=== PATIENT | male | born 1975 | race Caucasian/White ===

== ENCOUNTER 2018-11-23 18:20 | Observation (INO) ==
[2018-11-23] MEDS ORDERED: Ondansetron 4 MG/2 ML VIAL IVP ONE (19:52)
[2018-11-23] MEDS ORDERED: Ketorolac 15 MG/ML VIAL IVP ONE (19:52)
[2018-11-23 20:08] LABS: Basophils # 0.1 K/mcL (0.0-0.2); Basophils % 0.9 %; Eosinophils # 0.4 K/mcL (0.0-0.6); Eosinophils % 4.3 %; Hematocrit 44.1 % (37.5-50.1); Hemoglobin 14.7 g/dL (12.9-16.9); Immature Granulocytes % 0.3 % (0-4); Mean Corpuscular HGB Conc 33.3 g/dL (31.6-35.5); Mean Corpuscular Hemoglobin 30.1 pg (28.0-33.3); Mean Corpuscular Volume 90.2 fL (83.0-100.0); Mean Platelet Volume 9.6 fL (9.4-12.4); Monocytes # 0.9 K/mcL (0.0-1.3); Monocytes % 9.2 %; Neutrophils # 4.1 K/mcL (1.6-8.9); Platelet Count 302 K/mcL (140-400); Red Blood Count 4.89 M/mcL (4.19-5.50); Red Cell Distribution Width 13.2 % (11.5-14.5); Segmented Neutrophils % 43.3 %; White Blood Count 9.6 K/mcL (4.3-11.1)
[2018-11-23 20:09] LABS: BUN/Creatinine Ratio 15 (6-26); Blood Urea Nitrogen 15 mg/dL (6-20); Calcium 9.1 mg/dL (8.6-10.3); Carbon Dioxide 30 mEq/L (23-29); Chloride 104 mEq/L (98-107); Glucose 117 mg/dL (70-105); Osmolality,Calculated 292 (280-300); Potassium 3.3 mEq/L (3.5-5.1); Sodium 140 mEq/L (136-145); eGFR For African Americans > 60 (> 60); eGFR For Non-African Americans > 60 (> 60)
[2018-11-23 20:22] LABS: Bilirubin,Urine Negative (Negative); Blood,Urine Negative (Negative); Clarity,Urine Clear (Clear); Color,Urine Yellow (Yellow); Glucose,Urine (UA) Normal (Normal); Ketones,Urine Negative (Negative); Leukocyte Esterase,Urine Negative (Negative); Nitrite,Urine Negative (Negative); Protein,Urine Trace mg/dL (Neg-Trace); Specific Gravity,Urine >= 1.030 (1.010-1.025); Urobilinogen,Urine Normal (Normal)
[2018-11-23 21:02] LABS: Troponin I < 0.03 ng/mL (< 0.04)
--- NOTE | 2018-11-23 21:47 | Emergency Department Note ---
Disposition Clinical Impression: Symptomatic bradycardia, Left flank pain Disposition: Admitted As Inpatient Condition: Good Time of Disposition: 21:48 General Adult HPI - General Chief complaint: ED Abdominal Pain Stated complaint: Left Knee, ABD pain, blood in urine Time Seen by Provider: 11/23/18 18:46 Source: patient Mode of arrival: ambulatory Limitations: no limitations Nursing Notes Reviewed: Yes Vital Signs Reviewed: Yes - History of Present Illness HPI Narrative: 43-year-old male with significant past medical history of hypertension and previous kidney stones presenting to the emergency department with chief complaint of left flank pain, left knee pain. Patient states that starting yesterday he is had left flank pain radiating around into the anterior abdomen. He was concerned that this could be due to a kidney stone. Patient is also concerned because apparently father was recently diagnosed with bladder cancer and he is concerned that he could have that as well. Patient discloses some nausea but denies any vomiting or changes in his stool. Denies any fevers, chest pain or shortness of breath. Patient also says he has chronic left knee pain. Denies any recent falls or trauma. Pain Scale: 7 - Related Data Home Medications Medication Instructions Recorded Confirmed Omeprazole [PriLOSEC] 40 mg PO DAILY 03/28/17 11/23/18 Citalopram Hydrobromide 20 mg PO DAILY 04/01/18 11/23/18 [Citalopram HBr] Diclofenac Sodium [Voltaren] 1 applic TP QID PRN 04/01/18 11/23/18 Ibuprofen [Motrin] 800 mg PO Q8HR PRN 04/01/18 11/23/18 amLODIPine [Norvasc] 5 mg PO DAILY 04/01/18 11/23/18 Allergies Allergy/AdvReac Type Severity Reaction Status Date / Time hydrochlorothiazide Allergy Rash Verified 11/23/18 18:27 Penicillins [PCN] Allergy Rash Verified 11/23/18 18:27 All systems ED: reviewed and negative except as stated. Constitutional: Denies: fever Eyes: Reports: as per HPI ENT ED: Reports: as per HPI Cardiovascular: Denies: chest pain Respiratory: Denies: dyspnea Gastrointestinal: Reports: abdominal pain, nausea Genitourinary: Reports: as per HPI Musculoskeletal: Reports: as per HPI Integumentary: Reports: as per HPI Neurological: Reports: as per HPI Psychiatric: Reports: as per HPI Endocrine: Reports: as per HPI Hematological/Lymphatic: Reports: as per HPI Allergic/Immunologic: Reports: as per HPI Past Medical History - Past Medical History Attestation: Yes The following information was validated with the patient. Medical history: Reports: GERD, hypertension, kidney stones, other Surgical history: Reports: vasectomy, other Psychiatric history: Reports: anxiety, depression - Social History Smoking Status: Never smoker Smokeless Tobacco Status: Yes (chewing tobacco) Alcohol use: Reports: rarely Drug use: Reports: none, other Physical Exam - General Limitations: no limitations General appearance: alert, in no apparent distress - Head Head exam: atraumatic, normocephalic, normal inspection - Eye Eye exam: Absent: scleral icterus - ENT ENT exam: mucous membranes moist - Neck Neck exam: Present: full ROM - Chest Chest inspection: Present: symmetric chest wall rise - Respiratory Respiratory exam: Present: normal lung sounds bilaterally. Absent: respiratory distress, wheezes - Cardiovascular Cardiovascular exam: Present: normal rhythm, bradycardia, normal heart sounds - Abdominal Exam Abdominal exam: Present: soft, tenderness (Left flank). Absent: distention, guarding, rebound, rigidity - Extremities Exam Extremities exam: Present: full ROM - Neurological Exam Neurological exam: Present: alert, oriented X3 - Psychiatric Psychiatric exam: Present: normal affect - Skin Skin exam: Present: warm Course Course Narrative: 43-year-old male presenting with left flank pain. In the room he is alert and oriented 3. Hemodynamically stable. Physical exam is significant for left flank pain. Concern for intra-abdominal etiology most likely kidney stone. At this time will obtain basic laboratory analysis, urinalysis and CT of abdomen and pelvis. Disposition pending. Patient agrees with this plan. - Reevaluation(s) Reevaluation #1: Patient laboratory analysis and urine analysis within normal limits. CT abdomen and pelvis does not show any acute abnormality. While patient was being evaluated patient became bradycardic in the 30s. An EKG was completed that showed sinus bradycardia at 39 beats per minute. Patient states that he has been having lightheaded spells at home and has passed out multiple times. This is corroborated by the at bedside. At this time due to patient's symptomatic bradycardia we will plan to admit him for further evaluation. Troponin and chest x-ray was added to patient's workup. Troponin within normal limits. I spoke with the hospitalist on-call who agrees to accept the patient at this time. Patient remains alert and oriented 3 and hemodynamically stable at time of admission. Vital Signs Temperature 98.0 F 11/23/18 18:25 Pulse Rate 56 11/23/18 18:25 Respiratory Rate 18 11/23/18 18:25 Blood Pressure 131/79 11/23/18 18:25 O2 Sat by Pulse Oximetry 98 11/23/18 18:25 Temperature 98.0 F 11/23/18 18:25 Pulse Rate 41 11/23/18 20:45 Respiratory Rate 17 11/23/18 20:45 Blood Pressure 132/89 11/23/18 20:45 O2 Sat by Pulse Oximetry 100 11/23/18 20:45 Oxygen Delivery Oxygen Delivery Room Air Medical Decision Making - Lab Data Result diagrams: 11/24/18 05:43 11/24/18 05:43 Lab Results 11/23/18 11/23/18 11/23/18 Range/Units 19:09 19:29 19:29 WBC 9.6 (4.3-11.1) K/mcL RBC 4.89 (4.19-5.50) M/mcL Hgb 14.7 (12.9-16.9) g/dL Hct 44.1 (37.5-50.1) % MCV 90.2 (83.0-100.0) fL MCH 30.1 (28.0-33.3) pg MCHC 33.3 (31.6-35.5) g/dL RDW 13.2 (11.5-14.5) % Plt Count 302 (140-400) K/mcL MPV 9.6 (9.4-12.4) fL Immature Gran % 0.3 (0-4) % Seg Neutrophils % 43.3 % Lymphocytes % 42.0 % Monocytes % 9.2 % Eosinophils % 4.3 % Basophils % 0.9 % Neutrophils # 4.1 (1.6-8.9) K/mcL Lymphocytes # 4.0 (0.6-4.6) K/mcL Monocytes # 0.9 (0.0-1.3) K/mcL Eosinophils # 0.4 (0.0-0.6) K/mcL Basophils # 0.1 (0.0-0.2) K/mcL Sodium 140 (136-145) mEq/L Potassium 3.3 L (3.5-5.1) mEq/L Chloride 104 (98-107) mEq/L Carbon Dioxide 30 H (23-29) mEq/L BUN 15 (6-20) mg/dL Creatinine 1.00 (0.70-1.30) mg/dL Est GFR ( Amer) > 60 (> 60) Est GFR (Non-Af Amer) > 60 (> 60) BUN/Creatinine Ratio 15 (6-26) Glucose 117 H (70-105) mg/dL Calculated Osmolality 292 (280-300) Calcium 9.1 (8.6-10.3) mg/dL Troponin I < 0.03 (< 0.04) ng/mL Urine Color Yellow (Yellow) Urine Clarity Clear (Clear) Urine pH 6.0 (5.0-8.0) pH Units Ur Specific [place] >= 1.030 H (1.010-1.025) Urine Protein Trace (Neg-Trace) mg/dL Urine Glucose (UA) Normal (Normal) mg/dL Urine Ketones Negative (Negative) mg/dL Urine Blood Negative (Negative) Urine Nitrite Negative (Negative) Urine Bilirubin Negative (Negative) Urine Urobilinogen Normal (Normal) mg/dL Ur Leukocyte Esterase Negative (Negative) Ur Culture Indicated? NO (NO) - EKG Data EKG #1 EKG attestation: Yes I reviewed and interpreted this EKG. EKG results narrative: Sinus bradycardia. 39 beats for minute. No sign of acute ST segment elevation or ischemia. Attestation Statement - Attestation Attestation: I examined this patient and my medical decision-making was reviewed with the Resident Physician. I agree with the documented findings, disposition and treatment plan as described except to the extent set forth below. Patient mainly complaining of left-sided lower abdominal pain. The patient states he is being blood in the other day. The patient states that he is also had some lightheadedness. The patient was found to have bradycardia here in the emergency room as well. The patient possibly could have symptomatically bradycardia. The patient is on calcium channel soniya. Patient however is on no other beta soniya. Given that the patient has significant bradycardia and symptoms from this the patient will be admitted for further evaluation. The patient did not have any evidence of emergent abdominal issues. No evidence of kidney stones. No evidence of UTI or infections. Patient's this point in time will be admitted in stable condition. He did have an EKG, do agree with the resident's interpretation of this EKG.
[2018-11-24] MEDS ORDERED: Naloxone 0.4 MG/ML INJ IVP PRN (05:19)
--- NOTE | 2018-11-24 05:24 | Internal Med History&Physical ---
Date of Encounter: 11/24/18 Time of Encounter: 04:09 Internal Medicine - H&P: HPI Chief complaint: Symptomatic bradycardia History of present illness: Mr. Reeves is a 43 year old male Patient presents the emergency department with left knee pain as well as left flank pain. He has a history of kidney stones, and has frequent injections in his left knee after having multiple injuries to it over the years. He also states that he has been having multiple falls at home and at work. 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 Emergency department vital signs were notable for heart rate of 56, documented as low as 40 CBC unremarkable BMP notable for a potassium of 3.3 Initial troponin undetectable Urinalysis notable only for an elevated specific gravity, otherwise no abnormalities. Knee x-ray showed no acute osseous abnormality Abdomen and pelvis CT showed a few nonobstructing right renal calculi but no ureteric calculi. There is some nonspecific free fluid in the pelvis. No bowel obstruction Chest x-ray was stable with no acute process identified. EKG: Sinus bradycardia, rate 39, QTC [address] changes. In the emergency department patient received a 50 mg dose of Toradol, 4 mg of Zofran. He was admitted to the hospital for further management. Upon my evaluation, patient is resting comfortably in hospital bed in no acute distress. He denies chest pain, abdominal pain, nausea, vomiting, diarrhea cons tipation. He has been having his symptomatic bradycardia for many years. His PCP has worked him up in the past, but he denies ever having an echocardiogram or stress test performed. He is never seen a timber management assistant either. He is a full code. Past Med Surg Social Fam HX - Past Medical History Medical history: GERD, hypertension, kidney stones, other Additional medical history: opiod abuse,low back pain, home o2 2 lpm, hep c. anxiety with depression. lumbar HNP L5/S1. lumbar radiculitis. left leg nu mbness and pain. umbilical hernia Psychiatric history: anxiety, depression - Past Surgical History Surgical History: herniorrhaphy Additional surgical history: hydrocele surgery,vascetomy,finger amputation,liver bx. lithotripsy - Social History Smoking Status: Never smoker Smokeless Tobacco Status: Yes Alcohol use: rarely Drug use: none, other - Family History Mother Age: 65 Living Status: Still Living Hx Family Cardiac Disorders: Yes (heart disease) Hx Family Cancer: Yes (cervical cancer) Hx Family Endocrine Disorder: Yes (dm) Father Age: 68 Living Status: Still Living Hx Family Cardiac Disorders: Yes (heart disease) Hx Family Cancer: Yes (bladder cancer) Hx Family Endocrine Disorder: Yes (DM) Internal Medicine - H&P: Meds Omeprazole [PriLOSEC] 40 mg PO DAILY 03/28/17 [History] Citalopram Hydrobromide [Citalopram HBr] 20 mg PO DAILY 04/01/18 [History] Diclofenac Sodium [Voltaren] 1 applic TP QID PRN 04/01/18 [History] Ibuprofen [Motrin] 800 mg PO Q8HR PRN 04/01/18 [History] amLODIPine [Norvasc] 5 mg PO DAILY 04/01/18 [History] Allergy/AdvReac Type Severity Reaction Status Date / Time hydrochlorothiazide Allergy Rash Verified 11/23/18 18:27 Penicillins [PCN] Allergy Rash Verified 11/23/18 18:27 All Systems PM: A 10-system review of systems was performed and is negative for pertinent findings except as documented above in the HPI. - Constitutional Vitals: Temp Pulse Resp BP Pulse Ox 97.5 F L 46 16 104/63 97 11/24/18 04:25 11/24/18 04:25 11/24/18 04:25 11/24/18 04:25 11/24/18 04:25 General appearance: Present: cooperative, A&O X 3, pleasant, no acute distress, answers questions appropriately Exam: - - Head Head exam: Present: normal inspection - Eye Eye exam: Present: EOMI, normal appearance - Neck Neck exam general surgery: Present: full ROM - Respiratory Respiratory exam: Present: CTAB. Absent: rales, respiratory distress, rhonchi, wheezes - Cardiovascular Cardiovascular exam: Present: bradycardia. Absent: diastolic murmur, systolic murmur - GI/Abdominal GI/Abdominal exam: Present: normal bowel sounds, soft. Absent: tenderness - Extremities Exam Extremities exam: Present: warm, radial pulses palpable and symmetrical. Absent: calf tenderness, pedal edema, tenderness - Neurological Exam Neurological exam: Present: no focal deficits, strengths equal and symetr throughout. Absent: motor sensory deficit, facial droop, speech deficit - Skin Skin exam: Present: dry, normal color, warm Internal Med - H&P Results - Labs CBC & Chem 7: 11/23/18 19:29 11/23/18 19:29 Labs: Short CBC 11/23/18 Range/Units 19:29 WBC 9.6 (4.3-11.1) K/mcL Hgb 14.7 (12.9-16.9) g/dL Hct 44.1 (37.5-50.1) % Plt Count 302 (140-400) K/mcL Neutrophils # 4.1 (1.6-8.9) K/mcL BMP 11/23/18 19:29 Sodium 140 Potassium 3.3 L Chloride 104 Carbon Dioxide 30 H BUN 15 Creatinine 1.00 Glucose 117 H Calcium 9.1 Cardiac Enzymes 11/23/18 Range/Units 19:29 Troponin I < 0.03 (< 0.04) ng/mL Urine 11/23/18 Range/Units 19:09 Urine Color Yellow (Yellow) Urine Clarity Clear (Clear) Urine pH 6.0 (5.0-8.0) pH Units Ur Specific [place] >= 1.030 H (1.010-1.025) Urine Protein Trace (Neg-Trace) mg/dL Urine Glucose (UA) Normal (Normal) mg/dL - Impressions ITS Impressions Knee X-Ray 11/23/18 19:46 IMPRESSION: No acute osseous abnormality. D/ / Rob Ji / Rob Ji Interpreting Provider: Rob Ji Abdomen/Pelvis CT 11/23/18 20:20 IMPRESSION: 1. A few punctate nonobstructing right renal calculi. No ureteric calculi. 2. Small amount of free fluid in the pelvis which is nonspecific. This could be due to an occult infectious or inflammatory process. 3. No bowel obstruction. D/ / Mao Pastor MD / Mao Pastor MD Interpreting Provider: Mao Pastor MD Chest X-Ray 11/23/18 21:44 IMPRESSION: 1. Stable cardiomegaly with no acute cardiopulmonary process identified. D/ / Desmond Simon MD / Desmond Simon MD Interpreting Provider: Desmond Simon MD - Assessment and Plan (1) Symptomatic bradycardia Current Visit: Yes Status: Acute Assessment and plan: Patient has had multiple falls at work and at home, possibly related to his low heart rate. He has been told these had a low heart rate in the past but has not had it worked up before. Records, and he has seen Dr. Flores and had a Holter monitor placed. The Holter monitor results indicated an average heart rate of 68 with a minimum heart rate of 38. Cardiac telemetry Echocardiogram in the morning Cardiology consult (2) Weakness Current Visit: Yes Status: Acute Assessment and plan: Possibly related to bradycardia. 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 He has passed out at work while climbing hills and lifting heavy objects. Cardiology consult Echocardiogram in the morning Continue to monitor (3) Left knee pain Current Visit: Yes Status: Acute Assessment and plan: Chronic, patient usually gets steroid injections every 6 months. Follow-up outpatient Pain management as needed Qualifiers: Chronicity: chronic Qualified Code(s): M25.562 - Pain in left knee; G89.29 - Other chronic pain (4) Hypokalemia Current Visit: Yes Status: Acute Assessment and plan: Mildly low potassium of 3.3. Replete as needed Check magnesium (5) Left flank pain Current Visit: Yes Status: Acute Assessment and plan: Patient did not have flank pain on my exam, no tenderness with palpation. No kidney stones seen on CT. Continue to monitor (6) DVT prophylaxis Current Visit: Yes Status: Acute Assessment and plan: SCDs - Time Spent With Patient Total time spent is greater than 50% in coordination of care (as documented) at patient's floor/unit and/or counseling patient: Greater than 35 minutes
[2018-11-24] MEDS ORDERED: Potassium Chloride Elixir 20 MEQ/15 ML UDC PO ONE (05:48)
[2018-11-24] MEDS ORDERED: Potassium Chloride 40 MEQ, Lidocaine 1% 2 ML in D5% in Water 500 ML IVPB ONE (06:09)
[2018-11-24] MEDS ORDERED: Potassium Chloride 40 MEQ, Lidocaine 1% 2 ML in 0.9 % Sodium Chloride 500 ML IVPB ONE (06:45)
[2018-11-24 06:52] LABS: Hematocrit 42.7 % (37.5-50.1); Hemoglobin 13.9 g/dL (12.9-16.9); Mean Corpuscular HGB Conc 32.6 g/dL (31.6-35.5); Mean Corpuscular Hemoglobin 29.9 pg (28.0-33.3); Mean Corpuscular Volume 91.8 fL (83.0-100.0); Mean Platelet Volume 10.1 fL (9.4-12.4); Platelet Count 256 K/mcL (140-400); Red Blood Count 4.65 M/mcL (4.19-5.50); Red Cell Distribution Width 13.3 % (11.5-14.5); White Blood Count 8.6 K/mcL (4.3-11.1)
[2018-11-24 07:13] LABS: BUN/Creatinine Ratio 14 (6-26); Blood Urea Nitrogen 14 mg/dL (6-20); Calcium 8.7 mg/dL (8.6-10.3); Carbon Dioxide 28 mEq/L (23-29); Chloride 105 mEq/L (98-107); Glucose 116 mg/dL (70-105); Osmolality,Calculated 291 (280-300); Potassium 3.3 mEq/L (3.5-5.1); Sodium 140 mEq/L (136-145); eGFR For African Americans > 60 (> 60); eGFR For Non-African Americans > 60 (> 60)
--- NOTE | 2018-11-24 09:47 | Cardiology Consult Note ---
Date of Encounter: 11/24/18 Time of Encounter: 09:45 Assessment and Plan (1) Symptomatic bradycardia Current Visit: Yes Status: Acute Patient reports he has been having bradycardia and frequent falls intermittently for past three years. Holter monitor in 12/2016 showed average HR 68 with low of 39 and high of 168. Previous to this visit, patient had never had echocardiogram or stress test. -Echocardiogram has been performed and we will await report. -It is concerning that patient has been having episodes of syncope with bradycardia. -Recommend patient remain on telemetry at this time. -Will order treadmill nuclear stress test to further clarify heart function today or tomorrow -Possibly refer to EP; Dr. Darius Faust will be attending tomorrow. -Potassium level x2 has been 3.3. -KCl is currently being administered by IV Discussion w patient/family: The assessment and plan as outlined above was discussed with the patient and/or family members who expressed understanding and agreement. All questions were answered. Thank you for involving us in the care of your patient. Please call with any questions. History of Present Illness Consult date: 11/24/18 Requesting physician: Eric Blandon Consult reason: Symptomatic bradycardia Chief complaint: Symptomatic bradycardia History of present illness: Mr. Reeves is a 43 year old male who presents with symptomatic bradycardia in a context of hypokalemia and PMH of hypertension. He came to ED for left knee pain and left flank pain with PMH of kidney stones and frequent knee injections for multiple injuries. He was found to have a low heart rate which was 40 bpm at lowest. Patient reports he has had bradycardia with frequent falls and lightheadedness for approximately three years. In December 2016, his PCP sent him for Holter monitor which showed average HR of 68, minimum of 39 and maximum of 168, 1 PVC, 8 PACs. No further testing or management was performed at this time. Patient reports he is constantly exhausted and could sleep all day long if knee and back did not hurt. He also endorses lightheadedness, frequent falls, exertional dyspnea, chest pain at rest and at exertion, intermittent blurry vision, depression, anxiety, and headache. In ED, BMP showed potassium of 3.3, negative troponin, unremarkable CBC. CXR was stable and showed no acute process. ECG showed sinus bradycardia with rate of 39 QTc 378 ms, no ST changes. He received an echocardiogram this morning, with report pending. He previously h ad never had an echocardiogram or a stress test. 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 Past Med Surg Social Fam HX - Past Medical History Medical history: GERD, hypertension, kidney stones, other Additional medical history: opiod abuse,low back pain, home o2 2 lpm, hep c. anxiety with depression. lumbar HNP L5/S1. lumbar radiculitis. left leg numbness and pain. umbilical hernia Psychiatric history: anxiety, depression - Past Surgical History Surgical History: herniorrhaphy Additional surgical history: hydrocele surgery,vascetomy,finger amputation,liver bx. lithotripsy - Social History Smoking Status: Never smoker Smokeless Tobacco Status: Yes Alcohol use: rarely Drug use: none, other - Family History Mother Age: 65 Living Status: Still Living Hx Family Cardiac Disorders: Yes (heart disease) Hx Family Cancer: Yes (cervical cancer) Hx Family Endocrine Disorder: Yes (dm) Father Age: 68 Living Status: Still Living Hx Family Cardiac Disorders: Yes (heart disease) Hx Family Cancer: Yes (bladder cancer) Hx Family Endocrine Disorder: Yes (DM) Medications and Allergies Omeprazole [PriLOSEC] 40 mg PO DAILY 03/28/17 [History] Citalopram Hydrobromide [Citalopram HBr] 20 mg PO DAILY 04/01/18 [History] Diclofenac Sodium [Voltaren] 1 applic TP QID PRN 04/01/18 [History] Ibuprofen [Motrin] 800 mg PO Q8HR PRN 04/01/18 [History] amLODIPine [Norvasc] 5 mg PO DAILY 04/01/18 [History] Allergy/AdvReac Type Severity Reaction Status Date / Time hydrochlorothiazide Allergy Rash Verified 11/23/18 18:27 Penicillins [PCN] Allergy Rash Verified 11/23/18 18:27 All Systems Review: The remainder of the systems were reviewed and are negative - Constitutional Constitutional: fatigue, frequent falls, headache(s), snoring - EENT Eyes: blurred vision - Cardiovascular Cardiovascular: chest pain at rest, chest pain with exertion, dyspnea on exertion, leg edema (left only), lightheadedness, orthopnea, slow heart rate, syncope, no dyspnea at rest, no radiating jaw, neck or arm pain - Respiratory Respiratory: dyspnea, no wheezing - Gastrointestinal Gastrointestinal: constipation, diarrhea, nausea, other (vomiting) - Genitourinary Genitourinary: no dysuria - Musculoskeletal Musculoskeletal: back pain - Integumentary Integumentary: no rash - Neurological Neurological: dizziness, numbness, syncope, tingling - Psychiatric Psychiatric: anxiety, depression - Hematological/Lymphatic Hematologic/Lymphatic: no easy bleeding, no easy bruising Physical Examination Vital Signs, Last 4 Hours Temp Pulse Resp BP Pulse Ox 11/24/18 07:17 97.7 F 39 16 108/66 97 Other: GENERAL: Alert, answers questions appropriately, somewhat anxious HENT: normocephalic, atraumatic. Moist mucosa EYES: anicteric, clear sclerae. Pupils equal and reactive to light bilaterally NECK: no carotid bruits heard. Supple CV: bradycardic. Regular rhythm. No murmurs, clicks, or gallops heard RESPIRATORY/CHEST: clear to auscultation bilaterally. No wheezes, rhonchi, or rales. Diffuse mild tenderness over chest. GI: soft, nontender, nondistended. Normal bowel sounds EXTREMITIES: peripheral pulses 2+/4 bilaterally, nonedematous, acyanotic SKIN: warm, dry Results 11/24/18 05:43 11/24/18 05:43 Lab Results 11/23/18 11/23/18 11/24/18 19:29 19:29 05:43 WBC 9.6 8.6 Hgb 14.7 13.9 Hct 44.1 42.7 Plt Count 302 256 Sodium 140 Potassium 3.3 L Chloride 104 Carbon Dioxide 30 H BUN 15 Creatinine 1.00 Glucose 117 H Calcium 9.1 Magnesium Troponin I < 0.03 11/24/18 11/24/18 05:43 05:43 WBC Hgb Hct Plt Count Sodium 140 Potassium 3.3 L Chloride 105 Carbon Dioxide 28 BUN 14 Creatinine 0.99 Glucose 116 H Calcium 8.7 Magnesium 2.2 Troponin I - EKG Interpretation EKG results cardiology: personally reviewed, sinus rhythm (bradycardic) Consult Discharge Plan - Plan Referrals: NONE,PCP [Primary Care Provider] -
[2018-11-24] MEDS ORDERED: Regadenoson 0.4 MG/5 ML SYRINGE IVP ONE ×2 (12:28→12:37)
[2018-11-24 12:38] LABS: Thyroid Stimulating Hormone 5.566 mcIU/mL (0.340-5.600)
--- NOTE | 2018-11-24 14:43 | Internal Med Progress Note ---
Hospitalist Progress Note - Encounter Date of Encounter: 11/24/18 Time of Encounter: 14:15 - Subjective Interval History: Mr. Reeves is a 43 year old male with known past medical history of hypertension and depression pt presented to ER with progressively worsening generalized weakness, lethargic, frequent falls and passing out spells. 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 His serial troponin came back as negative. He denied any chest pain/shortness of breath now. However he does complain about dyspnea on exertion. Still feeling lightheaded/dizzy and weak - Exam Vitals: Temp Pulse Resp BP Pulse Ox 97.8 F 44 16 125/76 97 11/24/18 11:37 11/24/18 11:37 11/24/18 11:37 11/24/18 11:37 11/24/18 11:37 Exam: Gen: Alert, awake, Oriented to time,place and person Chest: Diminished breath sounds B/L, No wheezing, No crackles, No rales Heart: S1S2+ bradycardia No murmurs Abd: Soft, NT, BS +, No organomegaly Ext: No edema, pulses are palpable, No calf tenderness Neuro : No acute focal neuro deficits noticed Skin: No rash. - Assessment and Plan (1) Symptomatic bradycardia Current Visit: Yes Status: Acute Assessment and Plan: cont on tele so far serial troponin x 3 negative Echo showed LVEF 55-60%, normal left ventricular diastolic function Cardiology on board.. Appreciate their recommendations Scheduled for stress test today to assess HR with stress may need pacemaker placement.. Will talk to card cont on tele for now avoid BB and rate control medications (2) Weakness Current Visit: Yes Status: Acute Assessment and Plan: Possibly related to bradycardia (3) Left knee pain Current Visit: Yes Status: Acute Assessment and Plan: Chronic, patient usually gets steroid injections every 6 months. Follow-up outpatient Pain management as needed (4) Hypokalemia Current Visit: Yes Status: Acute Assessment and Plan: Mildly low potassium of 3.3. Replete as needed Check magnesium and K+ in AM (5) DVT prophylaxis Current Visit: Yes Status: Acute Assessment and Plan: On heparin SQ - Time Spent with Patient Total time spent is greater than 50% in coordination of care (as documented) at patient's floor/unit and/or counseling patient: Internal Medicine: Result - Labs CBC & Chem 7: 11/24/18 05:43 11/24/18 05:43 Labs: Short CBC 11/23/18 11/24/18 Range/Units 19:29 05:43 WBC 9.6 8.6 (4.3-11.1) K/mcL Hgb 14.7 13.9 (12.9-16.9) g/dL Hct 44.1 42.7 (37.5-50.1) % Plt Count 302 256 (140-400) K/mcL Neutrophils # 4.1 (1.6-8.9) K/mcL BMP 11/23/18 11/24/18 19:29 05:43 Sodium 140 140 Potassium 3.3 L 3.3 L Chloride 104 105 Carbon Dioxide 30 H 28 BUN 15 14 Creatinine 1.00 0.99 Glucose 117 H 116 H Calcium 9.1 8.7 Cardiac Enzymes 11/23/18 Range/Units 19:29 Troponin I < 0.03 (< 0.04) ng/mL Urine 11/23/18 Range/Units 19:09 Urine Color Yellow (Yellow) Urine Clarity Clear (Clear) Urine pH 6.0 (5.0-8.0) pH Units Ur Specific [place] >= 1.030 H (1.010-1.025) Urine Protein Trace (Neg-Trace) mg/dL Urine Glucose (UA) Normal (Normal) mg/dL - Impressions Impressions Knee X-Ray 11/23/18 19:46 IMPRESSION: No acute osseous abnormality. D/ / Rob Ji / Rbo Ji Interpreting Provider: Rob Ji Abdomen/Pelvis CT 11/23/18 20:20 IMPRESSION: 1. A few punctate nonobstructing right renal calculi. No ureteric calculi. 2. Small amount of free fluid in the pelvis which is nonspecific. This could be due to an occult infectious or inflammatory process. 3. No bowel obstruction. D/ / Mao Pastor MD / Mao Pastor MD Interpreting Provider: Mao Pastor MD Chest X-Ray 11/23/18 21:44 IMPRESSION: 1. Stable cardiomegaly with no acute cardiopulmonary process identified. D/ / Desmond Simon MD / Desmond Simon MD Interpreting Provider: Desmond Simon MD Echocardiogram 11/24/18 08:23 Impressions: LVEF 55-60%. Normal LV chamber size, wall thickness and function. Normal left ventricular diastolic function. Normal right ventricular structure and function. Mild tricuspid regurgitation. No evidence of pulmonary hypertension. Left Ventricular Wall Motion: Rest Echo Findings All wall segments showed normal motion. Findings: Study Quality * Technically adequate exam. ECG Findings * Sinus bradycardia. Left Ventricle * LVEF 55-60%. * Normal LV chamber size, wall thickness and function. * Normal left ventricular diastolic function. Right Ventricle * Normal right ventricular structure and function. Left Atrium * Normal left atrial size. Right Atrium * Normal right atrial size. Interatrial Septum * No evidence of PFO by color Doppler. Aortic Valve * Trileaflet aortic valve. * No aortic regurgitation. * No aortic stenosis. * Normal aortic valve structure. Mitral Valve * Normal mitral valve structure. * No mitral regurgitation. * No mitral stenosis. Tricuspid Valve * Normal tricuspid valve structure. * No tricuspid stenosis. * No evidence of pulmonary hypertension. * Mild tricuspid regurgitation. Pulmonic Valve * Trace pulmonic regurgitation. Aorta * Normally sized aortic root. Pericardium * The pericardium appears normal. IVC * The IVC is not well evaluated. Pulmonary Artery * Normal visualized portions of the main pulmonary artery. Consult Discharge Plan - Plan Referrals: NONE,PCP [Primary Care Provider] - (3) Left knee pain Qualifiers: Chronicity: chronic Qualified Code(s): M25.562 - Pain in left knee; G89.29 - Other chronic pain
--- NOTE | 2018-11-24 15:53 | Electrocardiograph Report ---
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
[2018-11-24] MEDS: *HR* Heparin 5,000 UNIT/ML VIAL SQ SCH (16:57)
[2018-11-24] MEDS: Aspirin Enteric Coated 81 MG Tablet PO SCH (16:57)
[2018-11-25] MEDS: *HR* Heparin 5,000 UNIT/ML VIAL SQ SCH (05:22)
[2018-11-25 05:30] LABS: BUN/Creatinine Ratio 13 (6-26); Blood Urea Nitrogen 13 mg/dL (6-20); Calcium 8.5 mg/dL (8.6-10.3); Carbon Dioxide 26 mEq/L (23-29); Chloride 105 mEq/L (98-107); Glucose 128 mg/dL (70-105); Magnesium 2.1 mg/dL (1.6-2.6); Osmolality,Calculated 290 (280-300); Potassium 3.5 mEq/L (3.5-5.1); Sodium 139 mEq/L (136-145); eGFR For African Americans > 60 (> 60); eGFR For Non-African Americans > 60 (> 60)
[2018-11-25] MEDS: Aspirin Enteric Coated 81 MG Tablet PO SCH (08:07)
--- NOTE | 2018-11-25 08:57 | Cardiology Progress Note ---
Date of Encounter: 11/25/18 Time of Encounter: 09:56 Assessment and Plan (1) Symptomatic bradycardia Current Visit: Yes Status: Acute Patient reports he has been having bradycardia and frequent falls intermittently for past three years. Holter monitor in 12/2016 showed average HR 68 with low of 39 and high of 168. Previous to this visit, patient had never had echocardiogram or stress test. -Echocardiogram showed EF 55-60%, normal LV chamber size and wall thickness and function, normal LV diastolic function, normal RV structure and function, mild TR and no evidence of pulmonary HTN. -Recommend patient remain on telemetry at this time. -Nuclear exercise stress test showed low level exercise during test. It was negative for ischemia, perfusion study was negative for ischemia or signs of infarction. There was a small fixed apical inferior defect of mild intensity with normal wall motion which is likely an artifact. Max HR 117, max BP 160/96. Patient experienced dizziness during test. -Potassium level x2 had been 3.3. Today this has improved to 3.5. -Currently evaluating patient history and presentation; patient age is rather young to have sick sinus. -Recommendations pending regarding need for pacemaker; uncertain whether it would be useful for symptom managment. -We do not recommend cardiac catheterization at this time as TTE and echo were both unremarkable. Discussion w patient/family: The assessment and plan as outlined above was discussed with the patient and/or family members who expressed understanding and agreement. All questions were answered. Thank you for involving us in the care of your patient. Please call with any questions. Subjective Principal diagnosis: symptomatic bradycardia Interval history: Mike Reeves is a 43-year-old male who presented with symptomatic bradycardia with frequent falls and lightheadedness. Yesterday, he underwent nuclear exercise stress test with low level exercise. This was negative for ischemia. Perfusion study was negative for ischemia or infarct/ There was a small fixed apical inferior defect of mild intensity with normal wall motion present, which was suggestive of artifact. Maximum heart rate was 115, maximum blood-pressure was 160/96. Patient did experience dizziness during test and reached 2.1 METS. Today, patient reports he was told after stress test that he would probably need a pacemaker and possibly cardiac catheterization first to rule out presence of any coronary blockages. He is currently NPO and is agreeable to either of these or both. Objective Vital Signs, Last 4 Hours Temp Pulse Resp BP Pulse Ox 11/25/18 06:59 97.7 F 41 16 107/65 97 Other: GENERAL: alert, conversant, in no acute distress HENT: atraumatic, normocephalic. Moist mucosa EYES: anicteric, clear sclerae, pupils equal and reactive to light bilaterally NECK: normal carotid pulses bilaterally. Supple. CV: Bradycardic, regular rate. No murmurs, clicks, gallops. RESPIRATORY: clear to auscultation bilaterally. No wheezes, rhonchi, or rales. GI: soft, mild RUQ tenderness. Nondistended. Normal bowel sounds in all four quadrants EXTREMITIES: nonedematous, acyanotic. Warm and dry. Peripheral pulses 2+/4 bilaterally. Capillary refill <2 sec Results 11/24/18 05:43 11/25/18 04:40 Lab Results 11/24/18 11/25/18 05:43 04:40 Sodium 140 139 Potassium 3.3 L 3.5 Chloride 105 105 Carbon Dioxide 28 26 BUN 14 13 Creatinine 0.99 1.01 Glucose 116 H 128 H Calcium 8.7 8.5 L Magnesium 2.1 TSH 5.566 - Imaging and Cardiology Stress Test: report reviewed Echo: report reviewed Consult Discharge Plan - Plan Referrals: NONE,PCP [Primary Care Provider] -
[2018-11-25 11:27] VITALS: BP 122/70
--- NOTE | 2018-11-25 15:09 | Internal Med Progress Note ---
Hospitalist Progress Note - Encounter Date of Encounter: 11/25/18 Time of Encounter: 13:45 - Subjective Interval History: Patient was seen examined and bedside. She still complaining about feeling lethargic, lightheadedness and dizzy. He denied any chest pain. He does complain about dyspnea on exertion - Exam Vitals: Temp Pulse Resp BP Pulse Ox 97.7 F 41 16 122/70 98 11/25/18 11:11/25/18 11:11/25/18 11:11/25/18 11:11/25/18 11:26 Exam: Gen: Alert, awake, Oriented to time,place and person Chest: Diminished breath sounds B/L, No wheezing, No crackles, No rales Heart: S1S2+ bradycardia No murmurs Abd: Soft, NT, BS +, No organomegaly Ext: No edema, pulses are palpable, No calf tenderness Neuro : No acute focal neuro deficits noticed Skin: No rash. - Assessment and Plan (1) Symptomatic bradycardia Current Visit: Yes Status: Acute Assessment and Plan: cont on tele so far serial troponin x 3 negative Echo showed LVEF 55-60%, normal left ventricular diastolic function Cardiology on board.. Appreciate their recommendations his nuclear stress test came back is negative for ischemia/infarction He may need pacemaker placement.. Will talk to card cont on tele for now avoid BB and rate control medications (2) Weakness Current Visit: Yes Status: Acute Assessment and Plan: Possibly related to bradycardia (3) Left knee pain Current Visit: Yes Status: Acute Assessment and Plan: Chronic, patient usually gets steroid injections every 6 months. Follow-up outpatient Pain management as needed (4) Hypokalemia Current Visit: Yes Status: Acute Assessment and Plan: Resolved (5) DVT prophylaxis Current Visit: Yes Status: Acute Assessment and Plan: On heparin SQ - Time Spent with Patient Total time spent is greater than 50% in coordination of care (as documented) at patient's floor/unit and/or counseling patient: Internal Medicine: Result - Labs CBC & Chem 7: 11/24/18 05:43 11/25/18 04:40 Labs: BMP 11/25/18 04:40 Sodium 139 Potassium 3.5 Chloride 105 Carbon Dioxide 26 BUN 13 Creatinine 1.01 Glucose 128 H Calcium 8.5 L Consult Discharge Plan - Plan Referrals: NONE,PCP [Primary Care Provider] - (3) Left knee pain Qualifiers: Chronicity: chronic Qualified Code(s): M25.562 - Pain in left knee; G89.29 - Other chronic pain
--- NOTE | 2018-11-25 16:09 | Discharge Summary ---
- NOTES TO OUTPATIENT PROVIDER Notes to Outpatient Provider: f/u with PCP in one week. f/u with Cardiology Dr. Faust in 2 weeks. f/u with Dr. Chaudhry for sleep study Date of Encounter: 11/25/18 Time of Encounter: 15:54 - Discharge Diagnosis (1) Symptomatic bradycardia Priority: Primary Status: Acute (2) Weakness Priority: Primary Status: Acute (3) Left knee pain Priority: Secondary Status: Acute Qualifiers: Chronicity: chronic Qualified Code(s): M25.562 - Pain in left knee; G89.29 - Other chronic pain (4) Hypokalemia Priority: Secondary Status: Acute (5) DVT prophylaxis Priority: Secondary Status: Acute Hospital course: Mr. Reeves is a 43 year old male with known past medical history of hypertension and depression pt presented to ER with progressively worsening generalized weakness, lethargic, frequent falls and passing out spells. 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 His serial troponin came back as negative. He denied any chest pain/shortness of breath now. His Echo showed LVEF 55-60%, normal left ventricular diastolic function. His nuclear stress test came back as negative for ischemia/infarction. He was evaluated by EP cardiology, who recommend to f/u with him as an out pt, no intervention suggested now since he is very young and he does have good HR response with exercise. His lethargy could be due to his RENAE too, so recommend him to go for out pt sleep studies. - Time Spent with Patient Total time spent providing and/or coordinating discharge services: - Discharge Medications Prescriptions: Continued Citalopram Hydrobromide [Citalopram HBr] 20 mg PO DAILY amLODIPine [Norvasc] 5 mg PO DAILY Ibuprofen [Motrin] 800 mg PO Q8HR PRN PRN Reason: Pain Diclofenac Sodium [Voltaren] 1 applic TP QID PRN PRN Reason: Pain Omeprazole [PriLOSEC] 40 mg PO DAILY Home Medications: Omeprazole [PriLOSEC] 40 mg PO DAILY 03/28/17 [History] Citalopram Hydrobromide [Citalopram HBr] 20 mg PO DAILY 04/01/18 [History] Diclofenac Sodium [Voltaren] 1 applic TP QID PRN 04/01/18 [History] Ibuprofen [Motrin] 800 mg PO Q8HR PRN 04/01/18 [History] amLODIPine [Norvasc] 5 mg PO DAILY 04/01/18 [History] Allergies/Adverse Reactions: Allergy/AdvReac Type Severity Reaction Status Date / Time hydrochlorothiazide Allergy Rash Verified 11/23/18 18:27 Penicillins [PCN] Allergy Rash Verified 11/23/18 18:27 Date of admission: 11/23/18 21:46 Primary care physician: PCP NONE Consults: 11/24/18 05:42 Consult to Cardiology [CONS] Routine Comment: Consulting Provider: [facility] [place] Reason for Consult: Symptomatic bradycardia Call Completed: No - Constitutional Vitals: Temp Pulse Resp BP Pulse Ox 97.7 F 41 16 122/70 98 11/25/18 11:26 11/25/18 11:26 11/25/18 11:26 11/25/18 11:26 11/25/18 11:26 General appearance: Present: cooperative, A&O X 3, pleasant, no acute distress, answers questions appropriately Exam: Gen: Alert, awake, Oriented to time,place and person Chest: Diminished breath sounds B/L, No wheezing, No crackles, No rales Heart: S1S2+ bradycardia No murmurs Abd: Soft, NT, BS +, No organomegaly Ext: No edema, pulses are palpable, No calf tenderness Neuro : No acute focal neuro deficits noticed Skin: No rash. - Patient Status Disposition: Home, Self-Care Condition: Good Overall status at discharge: patient is back to baseline - Discharge Instructions Follow Up With: NONE,PCP [Primary Care Provider] - Otis Chaudhry MD [Partnered Physician] - (Appointment has been requested. Office will call with date and time of appointment. ) Additional Instructions: Please call [phone] to become established with a Primary Care Physician. - Diet and Activity Activity: increase activity as tolerated Diet: low salt diet
== END 2018-11-25 16:34 | disposition home or self-care (01) ==
LOC: 3BNU 18:20 → EMEROOARM 18:20 → SUATTDRO 21:46 → 3BNU 23:03
PROVIDERS: ADMIT Internal Medicine; ATTEND Family Medicine

== ENCOUNTER 2019-11-12 20:49 | Observation (INO) ==
[2019-11-12 23:39] LABS: Adenovirus Not Detected (Not Detect); Bordetella Pertussis Not Detected (Not Detect); Chlamydophila pneumoniae Not Detected (Not Detect); Coronavirus 229E Not Detected (Not Detect); Coronavirus HKU1 Not Detected (Not Detect); Coronavirus NL63 Not Detected (Not Detect); Coronavirus OC43 Not Detected (Not Detect); Human Metapneumovirus Not Detected (Not Detect); Human Rhinovirus/Enterovirus DETECTED (Not Detect); Influenza A Subtype 2009 H1 Not Detected (Not Detect); Influenza B Not Detected (Not Detect); Mycoplasma pneumoniae Not Detected (Not Detect); Parainfluenza Virus 1 Not Detected (Not Detect); Parainfluenza Virus 2 Not Detected (Not Detect); Parainfluenza Virus 3 Not Detected (Not Detect); Parainfluenza Virus 4 Not Detected (Not Detect); Respiratory Syncytial Virus Not Detected (Not Detect); SARS-CoV-2 Not Detected (Not Detect)
[2019-11-13] MEDS ORDERED: Ondansetron 4 MG/2 ML VIAL IVP PRN ×2 (01:00→14:21)
[2019-11-13] MEDS ORDERED: 0.9 % Sodium Chloride 1,000 ML IVC SCH ×2 (01:15→14:21)
[2019-11-13] MEDS: Morphine Sulfate 2 MG/ML SYRINGE IVP PRN ×2 (04:27→09:10)
[2019-11-13] MEDS ORDERED: Piperacillin/Tazobactam 3.375 GM in 0.9 % Sodium Chloride Mini Bag 100 ML IVPB SCH (06:00)
[2019-11-13] MEDS ORDERED: MetroNIDAZOLE 500 MG/100 ML 500 MG/100 ML BAG IVPB SCH ×2 (06:00→18:00)
[2019-11-13] MEDS ORDERED: Famotidine 20 MG/2 ML VIAL IVP ONE (06:53)
[2019-11-13] MEDS ORDERED: amLODIPine 5 MG TABLET PO SCH (09:00)
[2019-11-13] MEDS ORDERED: Pantoprazole 40 MG VIAL IVP SCH (09:00)
[2019-11-13] MEDS ORDERED: *HR* Propofol 200 MG/20 ML VIAL IVP ONE (11:03)
[2019-11-13] MEDS ORDERED: *HR* FentaNYL (PF) 100 MCG/2 ML VIAL ONE ×2 (11:04→12:12)
[2019-11-13] MEDS ORDERED: *HR* Midazolam HCl 2 MG/2 ML VIAL ONE (11:04)
[2019-11-13] MEDS ORDERED: Lidocaine -MPF 2% 2 ML VIAL ONE (11:07)
[2019-11-13] MEDS ORDERED: Ondansetron 4 MG/2 ML VIAL ONE (11:07)
[2019-11-13] MEDS ORDERED: Dexamethasone 4 MG/ML VIAL ONE (11:07)
[2019-11-13] MEDS ORDERED: *HR* Rocuronium Bromide 50 MG/5 ML VIAL ONE (11:07)
[2019-11-13] MEDS ORDERED: Lidocaine HCL 4 ML Topical Solution (Laryng-O-Jet Kit Sterile Pak) TP ONE (11:07)
[2019-11-13] MEDS ORDERED: Acetaminophen IV 1,000 MG/100 ML BAG ONE (11:30)
[2019-11-13] MEDS ORDERED: Famotidine 20 MG/2 ML VIAL ONE (11:30)
[2019-11-13] MEDS ORDERED: Ondansetron 4 MG/2 ML VIAL IVP ONE (12:33)
[2019-11-13] MEDS ORDERED: *HR* Promethazine 25 MG/ML VIAL IVP PRN (12:33)
[2019-11-13] MEDS ORDERED: Ketorolac 30 MG/ML VIAL ONE (13:15)
[2019-11-13] MEDS: *HR* HYDROmorphone PF 0.5 MG/0.5 ML SYRINGE IVP PRN ×2 (13:41→13:48)
[2019-11-13] MEDS ORDERED: *HR* OxyCODONE/APAP 5/325 TABLET PO PRN (14:21)
[2019-11-13 17:21] VITALS: BP 156/106
[2019-11-13] MEDS ORDERED: Ketorolac 15 MG/ML VIAL IVP SCH (18:00)
[2019-11-14] MEDS ORDERED: Pantoprazole 40 MG VIAL IVP SCH (09:00)
[2019-11-14] MEDS ORDERED: amLODIPine 5 MG TABLET PO SCH (09:00)
[2019-11-17 17:12] LABS: Calculi Mass 4 mg
== END 2019-11-13 17:37 | disposition home or self-care (01) ==
LOC: 3ANU → CDU
PROVIDERS: ADMIT Surgery; ATTEND Surgery